=== PATIENT | female | born 2005 | race Caucasian/White ===

== ENCOUNTER → 2024-09-19 | Outpatient (CLI) | payer SELFPAY ==
--- NOTE | 2024-09-19 09:48 | US_ITS ---
EXAM: US LEFT UPPER EXTREMITY NON-VASCULAR, COMPLETE CLINICAL INDICATION: 2 SOFT TISSUE DENSITIES PALPABLE - JOHANN ARM/BICEP TECHNIQUE: Real-time ultrasound scan of the left upper extremity with image documentation. COMPARISON: No relevant prior studies available. FINDINGS: SOFT TISSUES: Within the left upper arm adjacent to the biceps muscle within the subcutaneous soft tissue, there is a 3.2 x 1.8 x 1.5 cm homogeneous well-defined mass isoechoic to subcutaneous fat, almost certainly a lipoma. Posteriorly, adjacent to the triceps muscle within the subcutaneous adipose, there is a 1.0 x 0.7 x 0.4 cm homogeneous lesion with the same properties also almost certainly a lipoma. No foreign body. US/Ext Non Vasc Limited/Soft Tiss IMPRESSION: Left upper extremity subcutaneous masses are almost certainly lipomas. Consider surgical consultation if desired or if there are suspicious features such as significant growth or pain. Electronically Signed: Maldonado Chavez DO at 23:29 EDT ,
== END | disposition home or self-care (01) ==
PROVIDERS: PCP Nurse Practitioner Family; Referring Provider Nurse Practitioner Family; Visit Provider Nurse Practitioner Family
DX: M79.89 Other specified soft tissue disorders (principal)
CPT/HCPCS: 76882